=== PATIENT | female | born 1990 | race Caucasian/White ===

== ENCOUNTER 2022-07-02 12:58 | Emergency (ER) | payer OTHER ==
[~2022-07-02] VITALS: Ht 154.9 cm; Wt 39.0 kg
[2022-07-02 18:45] VITALS: BP 106/68
== END 2022-07-02 20:38 | disposition home or self-care (01) ==
LOC: EMS 13:05
DX: Z02.89 Encounter for other administrative examinations (principal)
CPT/HCPCS: 72170; 74018; 74176; 99284; 36415-L1; 36415-TC